=== PATIENT | female | born 1995 | race Two or more races ===

== ENCOUNTER 2023-03-19 08:55 | Emergency (ER) | payer SELFPAY ==
[2023-03-19 08:56] VITALS: BP 130/95; PULSE 75; RESP 16; TEMP 36.4; O2SAT 100; BMI 26.1
--- NOTE | 2023-03-19 09:00 | EDS_ITS ---
HPI History of Present Illness Chief Complaint: Lower Extremity Injury PFSH PFS Medical History no medical history Allergy/AdvReac Type Severity Reaction Status Date / Time No Known Allergies Allergy Verified 03/19/23 08:56 Social History Smoking Status: Unknown if ever smoked EXAM Physical Exam Const Vital Signs: 03/19/23 08:56 Temperature 97.6 F L Temperature Source Temporal Pulse Rate 75 Respiratory Rate 16 Blood Pressure 130/95 H Blood Pressure Mean 106 Pulse Ox 100 Oxygen Delivery Method [place] [facility] [place] Medical decision making narrative: HISTORY OF PRESENT ILLNESS: 27-year-old female here with left foot pain after running it over with food cart. REVIEW OF SYSTEMS: Pertinent positives: Left foot pain Pertinent negatives: Numbness tingling, loss sensation PHYSICAL EXAM: Nursing triage notes reviewed, Vital signs reviewed Constitutional: please see mdm Extremities: No edema, Compartments are soft. Neuro: Intact sensation L1-S1 dermatomal distributions. Intact 5/5 strength in hip flexion (T12-L3). Knee extension (L2-L4). Ankle dorsiflexion (L4-L5). Ankle plantar flexion (S1). Great toe extension (L5). 2+ patellar and Achilles DTRs. Skin: No evidence of open fracture. There is mild erythema noted to the dorsal surface/left lateral ankle. No obvious ecchymosis. MEDICAL DECISION MAKING: Chief Complaint: Left foot pain External records reviewed: No recent advanced imaging noted of the left foot ALL IMAGES (IF OBTAINED) HAVE BEEN PERSONALLY REVIEWED AND INTERPRETED BY MYSELF. [facility] Narrative: The patient was hemodynamically stable, afebrile, nontoxic-appearing. I considered the following differential diagnosis: Foot contusion, fracture dislocation Obtain x-ray to rule out acute fracture dislocation. I reviewed the patient x- ray personally. X-rays personally read reviewed myself. I personally viewed the patient's x-ray. X-ray of the left foot showed no evidence of acute fracture dislocation. Patient will be discharged home and instructed take Tylenol and ibuprofen. The patient and/or family, caregivers express understanding. The patient and/or family, caregivers agrees with the plan. Shared decision making: I will have a discussion with the patient and or visitors regarding risk/benefits of further testing or admission. They will be made aware of of the risk/benefits inherent in this decision they will be given the opportunity to voice understanding. Total critical care time today provided was at least 0 minutes. This excludes separately billable procedures. Critical care time (if documented) is secondary to the patient having high probability of clinically significant/life threatening deterioration in the patient's condition which required my urgent intervention. Impression: 1. Acute ankle contusion 2. Acute foot contusion Dispo: Discharge Radiography Diagnostic Testing: Clinical Impression(s) from Imaging Studies Ankle X-Ray 03/19/23 09:22 IMPRESSION: Normal x-ray examination of the ankle. Electronically Signed: Schuyler Watkins MD at 9:45 EDT , Foot X-Ray 03/19/23 09:22 IMPRESSION: Normal x-ray examination of the foot. Electronically Signed: Schuyler Watkins MD at 9:46 EDT , Discharge Plan Triage Chief Complaint: Lower Extremity Injury ED Provider: Canelo Palafox Dx/Rx/DC Orders Instructions: ED Contusion, Lower Extremity Stand Alone Forms: ED Work / School Excuse Primary Care Provider: Care Physician,No Primary Referrals: Marcela Tabares [Non-Staff] - Activity Restrictions/Additional Instructions: Thank you for trusting us with your care today! Please take Tylenol (2 pills, 650 mg), ibuprofen (2 pills, 400 mg) every 6 hours as needed for pain and fever control. Please return to the emergency department if your symptoms change or worsen. Please follow with your primary care physician for further outpatient evaluation and management. Disposition Disposition: Home, Self Care
--- NOTE | 2023-03-19 09:22 | RAD_ITS ---
STUDY: X-RAY - LEFT FOOT CLINICAL: Female, 27 years old. Left foot pain following injury. TECHNIQUE: 3 view(s) of the foot. COMPARISON: None. FINDINGS: Normal talus, calcaneus, and tarsal bones. Normal visualized subtalar, talonavicular, calcaneocuboid, tarsal and tarsometatarsal articulations. Normal metatarsi. Normal metatarsophalangeal joint of the great toe. Normal tibial and fibular sesamoid bones. Normal interphalangeal joint of the great toe. Normal phalanges of the great toe. Normal second through fifth metatarsophalangeal joints. Normal interphalangeal joints and phalanges of the lesser toes. The soft tissue structures are unremarkable. RAD/Foot min 3 Views IMPRESSION: Normal x-ray examination of the foot. Electronically Signed: Schuyler Watkins MD at 9:46 EDT ,
--- NOTE | 2023-03-19 09:22 | RAD_ITS ---
STUDY: X-RAY - LEFT ANKLE REASON FOR EXAM: Female, 27 years old. Ankle pain following injury. TECHNIQUE: 3 view(s) of the ankle. COMPARISON: None. FINDINGS: Normal visualized distal tibia and fibula. Normal medial and lateral malleoli. Normal tibiotalar articulation and ankle mortise. Normal visualized talus and calcaneus. The visualized subtalar, talonavicular, calcaneocuboid and tarsal articulations are normal. The soft tissue structures are unremarkable. RAD/Ankle min 3 Views IMPRESSION: Normal x-ray examination of the ankle. Electronically Signed: Schuyler Watkins MD at 9:45 EDT ,
== END 2023-03-19 10:27 | disposition home or self-care (01) ==
PROVIDERS: Emergency Provider Emergency Medicine; Visit Provider Emergency Medicine
DX: S90.32XA Contusion of left foot, initial encounter (principal); S90.02XA Contusion of left ankle, initial encounter; X58.XXXA Exposure to other specified factors, initial encounter
CPT/HCPCS: 73610; 73630; 99282